=== PATIENT | male | born 1965 | race Caucasian/White ===

== ENCOUNTER 2017-02-24 20:57 | Emergency (ER) | payer SELFPAY ==
[~2017-02-24] VITALS: Ht 162.6 cm; Wt 94.6 kg
[2017-02-24 21:09] VITALS: BP 141/92
[2017-02-24] MEDS ORDERED: LORazepam 1MG TABLET PO ONE (22:00)
== END 2017-02-24 22:02 | disposition home or self-care (01) ==
LOC: ED 21:40
DX: F10.10 Alcohol abuse, uncomplicated (principal); I10 Essential (primary) hypertension; E11.9 Type 2 diabetes mellitus without complications
CPT/HCPCS: 99283

== ENCOUNTER 2020-06-23 18:24 | Emergency (ER) | payer SELFPAY ==
[~2020-06-23] VITALS: Ht 170.2 cm; Wt 85.5 kg
[2020-06-23 20:00] LABS: BASOPHILS % (AUTO) 0 % (0-1); EOSINOPHILS % (AUTO) 0 % (1-7); LYMPHOCYTES % (AUTO) 21 % (22-44); MEAN CORPUSCULAR HEMOGLOBIN 32.4 pg (27.5-34.5); MEAN CORPUSCULAR HGB CONC 34.2 g/dL (33.2-36.2); MEAN PLATELET VOLUME 7.6 fL (7.4-10.4); MONOCYTES % (AUTO) 5 % (2-9); NEUTROPHILS % (AUTO) 74 % (42-75); PLATELET COUNT 308 x10^3/uL (130-400); RED BLOOD COUNT 5.28 x10^6/uL (4.38-5.82); RED CELL DISTRIBUTION WIDTH 13.5 % (9.4-14.8)
[2020-06-23 20:02] LABS: ALBUMIN 4.2 g/dL (3.4-5.0); CALCIUM 8.7 mg/dL (8.5-10.1); CHLORIDE 104 mmol/L (98-107)
[2020-06-23 20:04] LABS: MD NO
[2020-06-23 20:08] LABS: ALANINE AMINOTRANSFERASE 33 U/L (12-78); ALKALINE PHOSPHATASE 86 U/L (45-117); ANION GAP 11 mmol/L (5-15); BILIRUBIN,TOTAL 0.5 mg/dL (0.2-1.0); CREATININE 0.71 mg/dL (0.7-1.3); TOTAL PROTEIN 7.7 g/dL (6.4-8.2)
--- NOTE | 2020-06-23 22:13 | NUR ---
PT IN ROOM. MD AT BEDSIDE
[2020-06-23] MEDS ORDERED: LORazepam 1MG TABLET ONE (22:24)
[2020-06-23 22:30] VITALS: BP 126/73
[2020-06-23] MEDS ORDERED: LORazepam 1MG TABLET PO ONE (22:30)
--- NOTE | 2020-06-23 22:31 | NUR ---
PT MEDICATED WITH ATIVAN. VSS. PT RESTING WITH NO NEEDS. WILL CONTINUE TO MONITOR. CALL LIGHT IN REACH
--- NOTE | 2020-06-23 23:07 | NUR ---
WENT TO CHECK ON PT. PT HAS LEFT ROOM AND IS NOT IN DEPARTMENT. NOTIFIED. VSS PRIOR TO ELOPMENT.
== END 2020-06-23 23:11 | disposition left against medical advice (07) ==
LOC: ED 22:20
DX: F10.129 Alcohol abuse with intoxication, unspecified (principal); R11.0 Nausea; R94.31 Abnormal electrocardiogram [ECG] [EKG]; I10 Essential (primary) hypertension; E11.9 Type 2 diabetes mellitus without complications; F17.200 Nicotine dependence, unspecified, uncomplicated; Y90.9 Presence of alcohol in blood, level not specified
CPT/HCPCS: 36415; 80053; 80320; 83690; 85025; 93005; 99284; G0480

== ENCOUNTER 2020-12-03 11:26 | Emergency (ER) | payer SELFPAY ==
[~2020-12-03] VITALS: Ht 165.1 cm; Wt 87.0 kg
--- NOTE | 2020-12-03 12:39 | NUR ---
DISASTER DIRECTOR: PT TO ROOM FROM LOBBY
--- NOTE | 2020-12-03 13:05 | NUR ---
.333 breathalyze. denies seizure hx wants to stop drinking, asking for lorazepam rx. as
[2020-12-03] MEDS ORDERED: ONDANSETRON 2MG/ML, 2ML ONE (13:39)
[2020-12-03] MEDS ORDERED: FAMOTIDINE 20 MG/2 ML ONE (13:40)
[2020-12-03 13:47] LABS: BASOPHILS % (AUTO) 0 % (0-1); EOSINOPHILS % (AUTO) 0 % (1-7); LYMPHOCYTES % (AUTO) 30 % (22-44); MEAN CORPUSCULAR HEMOGLOBIN 31.7 pg (27.5-34.5); MEAN PLATELET VOLUME 7.5 fL (7.4-10.4); MONOCYTES % (AUTO) 5 % (2-9); NEUTROPHILS % (AUTO) 64 % (42-75); PLATELET COUNT 251 x10^3/uL (130-400)
[2020-12-03 13:49] VITALS: BP 120/81
--- NOTE | 2020-12-03 13:49 | NUR ---
pt smoked cigarette in bathroom. security called, cigarettes confiscated. pt sts he is sorry. vss. piv est, meds per mar, asking for ativan. snoozing. no shaking visualized. fall rpecs/urinal/call cruz. as
[2020-12-03 13:51] LABS: MD NO
[2020-12-03 14:00] LABS: ALANINE AMINOTRANSFERASE 27 U/L (12-78); ALBUMIN 3.9 g/dL (3.4-5.0); ANION GAP 12 mmol/L (5-15); CALCIUM 8.8 mg/dL (8.5-10.1); CHLORIDE 100 mmol/L (98-107); CREATININE 0.76 mg/dL (0.7-1.3)
[2020-12-03] MEDS ORDERED: SODIUM CHLORIDE FLUSH 10ML SYR IVF ONE (14:00)
[2020-12-03] MEDS ORDERED: ONDANSETRON 2MG/ML, 2ML IVPush ONE (14:00)
[2020-12-03] MEDS ORDERED: FAMOTIDINE 20 MG/2 ML IVPush ONE (14:00)
[2020-12-03] MEDS ORDERED: SODIUM CHLORIDE 0.9% 1,000ML IVBOLUS ONE (14:00)
[2020-12-03 14:02] LABS: ALKALINE PHOSPHATASE 92 U/L (45-117); BILIRUBIN,TOTAL 0.5 mg/dL (0.2-1.0); TOTAL PROTEIN 7.2 g/dL (6.4-8.2)
--- NOTE | 2020-12-03 15:07 | NUR ---
AMBULATED TO DISCHARGE WINDOW, STEADY GAIT
== END 2020-12-03 15:13 | disposition home or self-care (01) ==
LOC: ED 12:51
DX: F10.220 Alcohol dependence with intoxication, uncomplicated (principal); Y90.0 Blood alcohol level of less than 20 mg/100 ml
CPT/HCPCS: 36415; 80053; 83690; 85025; 96361; 96374; 96375; 99284; J2405; J7030